=== PATIENT | male | born 1955 | race Caucasian/White ===

== ENCOUNTER 2021-02-11 05:45 | Day surgery (SDC) | payer MEDICARE ==
[~2021-02-11] VITALS: Ht 185.4 cm; Wt 102.0 kg
[~2021-02-11 05:45] MED LIST: CARVEDILOL6.25 MG PO; CYCLOBENZAPRINE10 MG PO; GLUCOPHAGE500 MG; HYDROCHLOROTHIA25 MG PO; IBUPROFEN600 MG PO; LIDODERM700 MG TOP; LOSARTAN POTAS100 MG PO; MEDROL4 M1 PO; NORCO 5-325 TA1 EACH PO; ROBAXIN-750750 MG PO; SPIRONOLACTONE25 MG PO
--- NOTE | 2021-02-11 10:06 | NUR ---
02/11/21 1006 Renetta Collazo 2456-PATIENT ARRIVED TO PACU ON 6L MASK RR EVEN AWAKE. IVF INFUSING. AFIB HR 40'S NO DRAINAGE TO ARLENE AREA. 1000-PATIENT PLACED ON RA. RR EVEN 99% PATIENT ORIENTED TO PACU. REPORTS "FEEL LIKE I DID IN THE 70'S" DENIES PAIN OR NAUSEA. UNABLE TO WIGGLE TOES. WHEN ASKED PATIENT IF CAN FEEL LEGS WHEN RN TOUCHING REPORTS " I DON'T THINK SO"
--- NOTE | 2021-02-11 11:20 | NUR ---
PATIENT COMPLAINTS OF HEADACHE, CALL TO PATRIC[facility] POE NEW ORDER FOR IV TORADOL. PATIENT RATES PAIN OF MALDONADO 4/10 ON PAIN SCALE. DIMMED LIGHTS. NO OTHER NEEDS AT THIS TIME.
--- NOTE | 2021-02-11 12:39 | NUR ---
PATIENT BLADDER SCANNED >850 ML, NOTIFIED DR. ORTIZ AND DR. ANDUJAR. NEW ORDERS FROM DR. ORTIZ TO STRAIGHT CATH PATIENT AND TRY LEAVE BLADDER HALF FULL SO THAT WHEN SPINAL WEARS OFF PATIENT WILL BE ABLE TO VOID. DR. BRIAN AGREED WITH THESE ORDERS. STRAIGHT CATH WITH STERILE PROCEDURE PROVIDED EMPTIED 600 ML, BLADDER SCANNED WHILE [facility] AND NOTED 290 ML. PULLED JUDGE TO LEAVE THAT URINE IN BLADDER DIRECTED. PATIENT AWAKE AND ALERT. REPORTS NO SENASTION AND STATES " I AM THANKFUL FOR THE EXPERIENCE OF HAVING NO PAIN MY LOWER BACK" PATIENT ABLE TO MOVE LEGS. NO OTHER NEEDS AT THIS TIME. PATIENT DENIES NEED FOR LUNCH. PROVIDED FRESH ICE WATER. CALL LIGHT WITHINR REACH.
--- NOTE | 2021-02-11 14:55 | NUR ---
PATIENT VOIDED 100 ML OF URINE, REPORTED BURNING AND FEELING LIKE MORE WAS THERE BUT EVEN WITH TRYING TO GET URINE TO FLOW WAS UNABLE. REPORTED TO DR. BRIAN AND DR. ORTIZ VIA TELEPHONE. DR. BRIAN REPORTED WOULD FOLLOW UP WITH PATIENT BY TELEPHONE TOMORROW, AND IF GOES HOME AND UNABLE TO VOID THEN PATIENT NEEDS TO GO TO AN EMERGENCY ROOM FOR EVALUATION. DR. ORTIZ AGREED WITH DR. BRIAN, PVS WAS [address] ORTIZ VERBALIZED OKAY WITH VOIDING 100 ML OF URINE.
--- NOTE | 2021-02-11 15:30 | NUR ---
PROVIDED DISCHARGE EDUCATION TO PATIENT, AND TELEPHONED REPORT TO WHO DID NOT WANT TO COME INTO THE HOSPITAL. PROVIDED PATIENT WHEELCHAIR RIDE TO FRONT. PATIENT TRANSFERED INTO CAR.
--- NOTE | 2021-02-23 00:32 | OR ---
[facility] [address] [facility] [place], [place] [address] Signed DATE OF OPERATION: 02/11/2021 SURGEON: Minh Brewster MD, PH.D. PREOPERATIVE DIAGNOSIS: Prostate adenocarcinoma. POSTOPERATIVE DIAGNOSIS: Prostate adenocarcinoma. PROCEDURE: Rectal ultrasound-guided implantation of radioactive iodine-125 seeds into the prostate gland. ANESTHESIA: Spinal. ESTIMATED BLOOD LOSS: Minimal. COMPLICATIONS: None. ANTIBIOTICS: IV levofloxacin. INDICATIONS FOR PROCEDURE: Gerry Rivera is a 65-year-old gentleman with a newly diagnosed with stage T1c, [place] grade 3+4 = 7, PSA 4.0 prostate adenocarcinoma. He has elected to undergo a radioactive seed implant as monotherapy. Prescription dose: 145 Gy with iodine-125 seeds with 0.329 millicurie activity. OPERATIVE DESCRIPTION: Following induction of adequate anesthesia, the patient was placed in the treatment planning dorsal lithotomy position. The perineum was prepped with Betadine and a Cedeño catheter was inserted into the bladder without difficulty. The scrotum was elevated onto the abdominal wall and secured with Ioban. The fixation support system was fixed to the table and the ultrasound probe was affixed to the system. Transrectal ultrasound examination of the prostate was performed with a 6 MHz probe, taking sagittal and Electronically Signed By: MINH BREWSTER 02/23/21 0032 PATIENT NAME: GERRY RIVERA OPERATIVE REPORT DATE OF : 55 REPORT #: [id number] PHYSICIAN: MINH BREWSTER PCP: NO PRIMARY CARE PHYSICIAN REPORT IS CONFIDENTIAL AND NOT TO BE RELEASED WITHOUT AUTHORIZATION [facility] [address] [place], [place] [address] Signed transverse views to localize the prostate gland, and to make sure the images conformed to the preoperative plan. Once the proper angulation and position were obtained, the apparatus was fixed in position. The template was then attached to the apparatus. Then, individual preloaded needles were inserted, one needle at a time through the template and perineal skin, and into the prostate gland according to the preoperative plan. Each individual needle was identified on the ultrasound images and inserted into position as close as possible to the pretreatment plan on axial images. Two anchor needles were placed initially to help stabilize the prostate gland. Then, starting anteriorly, one row of needles were placed first. The proper depth of each needle was then confirmed on sagittal images and also by measuring the distance from the template to the hub of each needle with a ruler. Then, needles were slowly withdrawn with the stylet in place, so that the stranded seeds were placed in the prostate gland in the proper position. Then, subsequent rows of needles were placed, one at a time with placement of all the seeds from each row before proceeding to the next row. AP pelvic x-rays were taken periodically to confirm the proper position of the radioactive seeds. The treatment plan called for 100 seeds to be implanted, and a total of 100 seeds were placed into the prostate gland using 27 needles for a total activity of 32.913 millicuries. There was no bony interference encountered during the procedure. Following the insertion of the seeds, an AP pelvic x-ray was taken, which revealed seeds to be in the proper position within the pelvis. The patient then had a cystoscopy performed by Dr. Ovalle (see separate operative report) with no seeds seen in the urethra or bladder. The patient tolerated the procedure well and was taken to the recovery room in good condition. The patient will have a voiding trial prior to discharge. The patient will follow up with me in 1 month and will also have a CT scan of the pelvis performed for dosimetric evaluation. He was told to phone our office if he has any difficulties or problems. CONDITION: Stable. Minh Brewster MD, PH.D. Electronically Signed By: MINH BREWSTER 02/23/2131 PATIENT NAME: GERRY RIVERA OPERATIVE REPORT DATE OF : 55 REPORT #: [id number] PHYSICIAN: MINH BREWSTER PCP: NO PRIMARY CARE PHYSICIAN REPORT IS CONFIDENTIAL AND NOT TO BE RELEASED WITHOUT AUTHORIZATION [address] [address] Signed VAISHNAVI/CARSONL /[id number] Copies: ~ Electronically Signed By: MINH BREWSTER 02/23/2131 PATIENT NAME: GERRY RIVERA OPERATIVE REPORT DATE OF : 55 REPORT #: [id number] PHYSICIAN: MINH BREWSTER PCP: NO PRIMARY CARE PHYSICIAN REPORT IS CONFIDENTIAL AND NOT TO BE RELEASED WITHOUT AUTHORIZATION
== END 2021-02-11 15:35 | disposition home or self-care (01) ==
LOC: DS 05:45
PROVIDERS: ATTEND Radiology Radiation Oncology
PROC: 0VH071Z Insertion of Radioactive Element into Prostate, Via Natural or Artificial Opening (ICD-10-PCS; 2021-02-11)
PROC: DV1 Radiation Therapy, Male Reproductive System, Brachytherapy (ICD-10-PCS; principal; 2021-02-11 06:45)
DX: C61 Malignant neoplasm of prostate (principal); R97.21 Rising PSA following treatment for malignant neoplasm of prostate; I48.91 Unspecified atrial fibrillation; J45.909 Unspecified asthma, uncomplicated; E11.42 Type 2 diabetes mellitus with diabetic polyneuropathy; I10 Essential (primary) hypertension; I25.10 Atherosclerotic heart disease of native coronary artery without angina pectoris; E78.5 Hyperlipidemia, unspecified; Z98.1 Arthrodesis status; Z79.84 Long term (current) use of oral hypoglycemic drugs; Z88.0 Allergy status to penicillin; Z88.8 Allergy status to other drugs, medicaments and biological substances; Z87.891 Personal history of nicotine dependence
CPT/HCPCS: 00902; 76873; J1885; J1956; J2001; J2250; J2405; J2704; J7121